=== PATIENT | male | born 1980 | race Caucasian/White ===

== ENCOUNTER 2018-11-20 20:45 | Emergency (ER) | payer SELFPAY ==
[2018-11-20] MEDS ORDERED: ALBUTEROL SO4 2.5/IPRATROPIUM 0.5 INH SOL 3 ML VIAL.NEB. NEB ONE ×2 (20:54→21:58)
--- NOTE | 2018-11-20 20:54 | PDOC ---
Rapid Medical Evaluation Chief Complaint: Respiratory Time Seen by Provider: 11/20/18 20:52 Medical Evaluation: 11/20/18 20:52 I have performed a brief in-person evaluation of this patient. The patient presents with a chief complaint of: fevers and chills x 5 days = coughing with pleuritic pain , + smoking- green phlegm Pertinent physical exam findings: coarse insp grunts wheezing I have ordered the following: CXR/ DUoNeb The patient will proceed to the ED for further evaluation. 11/20/18 20:53 Discharge Disposition - Diagnosis Cough - Referrals - Patient Instructions - Post Discharge Activity
[2018-11-20 20:55] VITALS: TEMP 98.8; BMI 22.0
--- NOTE | 2018-11-20 21:58 | PDOC ---
History of Present Illness <Eliu Rothman - Last Filed: 11/20/18 23:13> - General History Source: Patient Exam Limitations: No Limitations - History of Present Illness Initial Comments: Jojo Avery is a 38 yo M w a pmh of childhood asthma who presents to the ER with 7 days of left sided chest pain described as sharp in quality, rated 7/10, worsens when he coughs or takes a deep breath, and radiates to his back when he coughs. The patient states he has been waking up every day for the past week with a fever and has been sweating every morning when he wakes up. He also endorses multiple episodes of the chills. He states he has been coughing relentlessly and the cough is productive of greenish sputum. Patient states that today his mom gave him "a william pill for the fever." When specified the patient states it was azithromycin and he took 5oo mg of it. The chest pain is not associated with vomiting, worsening with physical exertion or radiation to the arm. Patient denies recent travel, surgeries, immobility, hormone usage, personal or family hx of thrombosis, calf pain, swelling, or erythema. PCP: None PSH: None reported Social Hx: Smokes 1 PPD for 20 years, smokes 1 blunt of marijuana daily, denies alcohol or illicit drug usage. Allergies: NKA, NKDA <Blaine Barnard - Last Filed: 11/21/18 19:03> - General Chief Complaint: Cold Symptoms Stated Complaint: FEVER Time Seen by Provider: 11/20/18 20:52 Past History <Eliu Rothman - Last Filed: 11/20/18 23:13> - Past Medical History COPD: No - Suicide/Smoking/Psychosocial Hx Smoking History: Current every day smoker Have you smoked in the past 12 months: Yes Number of Cigarettes Smoked Daily: 10 Information on smoking cessation initiated: No Hx Alcohol Use: No Drug/Substance Use Hx: Yes <Blaine Barnard - Last Filed: 11/21/18 19:03> - Past Medical History Allergies/Adverse Reactions: Allergies Allergy/AdvReac Type Severity Reaction Status Date / Time No Known Allergies Allergy Verified 11/20/18 20:55 Home Medications: Ambulatory Orders Albuterol 2.5/Ipratropium 0.5 [Duoneb -] 1 neb NEB Q4H #1 vial 11/20/18 Albuterol Sulfate Inhaler - [Ventolin Hfa Inhaler -] 1 - 2 inh PO Q4H #1 inhaler 11/20/18 Azithromycin [Zithromax Tri-[place] (3 DAYS) -] 500 mg PO DAILY #3 tablet 11/20/18 Prednisone [Deltasone] See Taper PO DAILY #10 tablet MDD 2 tab 11/20/18 Review of Systems - Review of Systems Able to Perform ROS?: Yes Comments:: CONSTITUTIONAL: Present: Fever, chills, diaphoresis Absent: generalized weakness, malaise, loss of appetite HEENT: Absent: rhinorrhea, nasal congestion, throat pain, throat swelling, difficulty swallowing, mouth swelling, ear pain, eye pain, visual Changes CARDIOVASCULAR: Present: Chest pain Absent: syncope, palpitations, irregular heart rate, lightheadedness, peripheral edema RESPIRATORY: Present: Cough, SOB, wheezing Absent: dyspnea with exertion, orthopnea, stridor, hemoptysis GASTROINTESTINAL: Absent: abdominal pain, abdominal distension, nausea, vomiting, diarrhea, constipation, melena, hematochezia GENITOURINARY: Absent: dysuria, frequency, urgency, hesitancy, hematuria, flank pain, genital pain MUSCULOSKELETAL: Present: Myalgia Absent: arthralgia, joint swelling SKIN: Absent: rash, itching, pallor HEMATOLOGIC/IMMUNOLOGIC: Absent: easy bleeding, easy bruising, lymphadenopathy, frequent infections ENDOCRINE: Absent: unexplained weight gain, unexplained weight loss, heat intolerance, cold intolerance NEUROLOGIC: Absent: headache, focal weakness or paresthesias, dizziness, unsteady gait, seizure, mental status changes, bladder or bowel incontinence PSYCHIATRIC: Present: Anxiety Absent: depression, suicidal or homicidal ideation, hallucinations. <Blaine Barnard - Last Filed: 11/21/18 19:03> *Physical Exam - Vital Signs Last Vital Signs Temp Pulse Resp BP Pulse Ox 98.8 F 102 H 22 H 125/83 96 11/20/18 20:53 11/20/18 20:53 11/20/18 20:53 11/20/18 20:53 11/20/18 20:53 <Eliu Rothman - Last Filed: 11/20/18 23:13> - Vital Signs Last Vital Signs Temp Pulse Resp BP Pulse Ox 98.8 F 102 H 22 H 125/83 96 11/20/18 20:53 11/20/18 20:53 11/20/18 20:53 11/20/18 20:53 11/20/18 20:53 - Physical Exam Comments: GENERAL: Well developed, well nourished. Awake and alert. Mild acute distress. HEENT: Normocephalic, atraumatic. PERRLA, EOMI. No conjunctival pallor. Sclera are non- icteric. Moist mucous membranes. Oropharynx is clear. NECK: Supple. Full ROM. No JVD. CARDIOVASCULAR: Tachycardic rate, regular rhythm. No murmurs, rubs, or gallops. Distal pulses are 2+ and symmetric. PULMONARY: There is focal left sided wheezes and crackles in the middle and lower lobes. Mild evidence of respiratory distress. ABDOMINAL: Soft. Non-tender. Non-distended. No rebound or guarding. No organomegaly. Normoactive bowel sounds. MUSCULOSKELETAL Normal range of motion at all joints. No bony deformities or tenderness. No CVA tenderness. EXTREMITIES: No cyanosis. No clubbing. No edema. No calf tenderness. SKIN: Warm and dry. Normal capillary refill. No rashes. No jaundice. NEUROLOGICAL: Alert, awake, appropriate. Cranial nerves 2-12 intact. No deficits to light touch in face, upper extremities and lower extremities. No motor deficits in the in face, upper extremities and lower extremities. Normal speech. Gait is normal without ataxia. PSYCHIATRIC: Cooperative. Good eye contact. Appropriate mood and affect. <Blaine Barnard - Last Filed: 11/21/18 19:03> ED Treatment Course - LABORATORY CBC & Chemistry Diagram: 11/20/18 22:22 11/20/18 22:22 - ADDITIONAL ORDERS Additional order review: Laboratory Results 11/20/18 22:22 Sodium 137 Potassium 4.2 Chloride 104 Carbon Dioxide 27 Anion Gap 6 L BUN 14.7 Creatinine 0.8 Est GFR (CKD-EPI)AfAm 130.42 Est GFR (CKD-EPI)NonAf 112.53 Random Glucose 108 H Calcium 8.6 Total Bilirubin 1.0 AST 24 ALT 32 Alkaline Phosphatase 90 Total Protein 7.3 Albumin 3.8 11/20/18 22:22 RBC 4.23 MCV 95.7 MCHC 35.5 RDW 13.1 MPV 7.8 Neutrophils % 74.8 Lymphocytes % 17.2 Monocytes % 7.5 Eosinophils % 0.0 Basophils % 0.5 - Medications Given in the ED: ED Medications Discontinued Medications Generic Name Dose Route Start Last Admin Trade Name Neetu PRN Reason Stop Dose Admin Albuterol/Ipratropium 1 amp 11/20/18 20:54 11/20/18 22:02 Duoneb - NEB 11/20/18 20:55 1 amp ONCE ONE Administration Ibuprofen 800 mg 11/20/18 22:12 11/20/18 22:28 Motrin - PO 11/20/18 22:13 800 mg ONCE ONE Administration Sodium Chloride 1,000 ml 11/20/18 22:12 11/20/18 22:28 Normal Saline - IV 11/20/18 22:13 1,000 ml ONCE ONE Administration <Eliu Rothman - Last Filed: 11/20/18 23:13> - LABORATORY CBC & Chemistry Diagram: 11/20/18 22:22 11/20/18 22:22 - RADIOLOGY Radiograph Interpretation: CXR: Reason for the study. Cough Chest. 2 Views of the chest. Comparison study. None Findings Unremarkable contour of the cardiomediastinal silhouette. Lungs ang appear clear, without evidence of infiltrate, atelectasis. Bullous changes suggested in the lung apices. Pulmonary vasculature is normal. No evidence of pleural effusion, or pneumothorax. No evidence of bulky hilar adenopathy. Visualized bony structures appear intact. IMPRESSION: No evidence of active pulmonary disease. <Blaine Barnard - Last Filed: 11/21/18 19:03> Medical Decision Making - Medical Decision Making Jojo Avery is a 38 yo M w a h of childhood asthma who presents to the ER with 7 days of left sided chest pain described as sharp in quality, rated 7/10, worsens when he coughs or takes a deep breath, and radiates to his back when he coughs. The patient states he has been waking up every day for the past week with a fever and has been sweating every morning when he wakes up. He also endorses multiple episodes of the chills. He states he has been coughing relentlessly and the cough is productive of greenish sputum. Patient states that today his mom gave him "a william pill for the fever." When specified the patient states it was azithromycin and he took 5oo mg of it. Vital Signs Temp Pulse Resp BP Pulse Ox 98.8 F 102 H 22 H 125/83 96 11/20/18 20:53 11/20/18 20:53 11/20/18 20:53 11/20/18 20:53 11/20/18 20:53 DDx IBNLT: PNA, pneumothorax, dehydration, electrolyte/metabolic disturbance, ACS/NH Plan: Labs, CXR, EKG, analgesia, IV hydration, duonebs, re-assess. Labs: Mild baby leukocytosis with left shift. CXR: Possibly increased retrocardiac markings. EKG: NS rate of 87, narrow complex, No ST elevations or depressions, TWI in V2, MI - 128, QTc - 430 Re-assessment: Patient feels much better after analgesia and requests to be discharged. he is very well appearing and has no complaints at the present time. Given the WBC count and the possible retrocardiac markings will send patient home with a Z pack, steroids, and supportive care. Disposition: Home with PCP follow up. <Blaine Barnard - Last Filed: 11/21/18 19:03> *DC/Admit/Observation/Transfer <Eliu Rothman - Last Filed: 11/20/18 23:13> - Discharge Dispostion Decision to Admit order: No <Blaine Barnard - Last Filed: 11/21/18 19:03> Diagnosis at time of Disposition: Cough - Discharge Dispostion Disposition: HOME Condition at time of disposition: Improved - Prescriptions Prescriptions: Albuterol 2.5/Ipratropium 0.5 [Duoneb -] 1 neb NEB Q4H #1 vial Albuterol Sulfate Inhaler - [Ventolin Hfa Inhaler -] 1 - 2 inh PO Q4H #1 inhaler Azithromycin [Zithromax Tri-[place] (3 DAYS) -] 500 mg PO DAILY #3 tablet Prednisone [Deltasone] See Taper PO DAILY #10 tablet MDD 2 tab - Referrals Referrals: [facility] [place] [Provider Group] - Patient Instructions Printed Discharge Instructions: DI for Chronic Obstructive Pulmonary Disease Additional Instructions: Please return to the emergency department with any new or worsening symptoms or concerns. 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 Please take Prednisone daily, and albuterol as needed. Please take Azithromycin daily. Print Language: AMHARIC
--- NOTE | 2018-11-20 22:10 | PDOC ---
Documentation entered by Perlita Parham SCRIBE, acting as scribe for Guero Daniels MD. Guero Daniels MD: This documentation has been prepared by the Dione delgado Brenda, SCRIBE, under my direction and personally reviewed by me in its entirety. I confirm that the documentation accurately reflects all work, treatment, procedures, and medical decision making performed by me. Attending Attestation - Resident Resident Name: Blaine Barnard - ED Attending Attestation I have performed the following: I have examined & evaluated the patient, The case was reviewed & discussed with the resident, I agree w/resident's findings & plan, Exceptions are as noted - HPI HPI: 11/20/18 22:26 The patient is a 38 year old male, with no significant PMH, who presents to the emergency department with 7 days of left sided chest pain with a productive cough of green sputum. The patient reports that his chest pain radiates to his back. He also notes that it is aggravated by breathing in and out, or taking deep breaths, resulting in coughing. He also endorses 5 days of fevers and chills, and episodes of diaphoresis upon waking up. The patient associates his symptoms with his workplace, where he has recently been breathing in a lot of fumes. The patient denies recent travel. Denies headache and dizziness. Denies nausea, vomiting, diarrhea and constipation. Denies dysuria, frequency, urgency and hematuria. Denies any other symptoms. Allergies: NKA Past surgical history: Not reported Social history: Current tobacco use, 10 cigarettes a day. Currently smokes 1 blunt of marijuana daily. Family Hx: No family history of thrombosis PCP: Does not have one. - Physicial Exam PE: 11/21/18 02:29 Agree with exam as documented by resident - Medical Decision Making 11/21/18 02:29 Asthma exacerbation? pna, uri f/u labs, cxr symptomatic tx re-eval dispo per clinical course 11/21/18 02:52 ?retrocardiac consolidation Will treat presumed L sided PNA Rx for Zpack sent to pharmacy of choice
[2018-11-20] MEDS ORDERED: SODIUM CHLORIDE 0.9% 500 ML INFUS.BAG IV ONE (22:12)
[2018-11-20] MEDS ORDERED: IBUPROFEN 400 MG TABLET (FP) PO ONE ×2 (22:12→22:24)
[2018-11-20 22:36] LABS: BASO % 0.5 % (0-2.0); HEMATOCRIT 40.5 % (35.4-49); HEMOGLOBIN 14.4 GM/dL (11.7-16.9); LYMPH % 17.2 % (8-40); MCH 33.9 pg (25.7-33.7); MCHC 35.5 g/dl (32.0-35.9); MEAN CELL VOLUME 95.7 fl (80-96); MEAN PLT VOLUME 7.8 fl (7.5-11.1); MONO % 7.5 % (3.8-10.2); NEUT % 74.8 % (42.8-82.8); PLATELET COUNT 239 K/MM3 (134-434); RBC 4.23 M/mm3 (4.00-5.60); RDW 13.1 % (11.9-15.9); WHITE BLOOD COUNT 10.8 K/mm3 (4.0-10.0)
[2018-11-20] MEDS ORDERED: AZITHROMYCIN IVPB 500 MG in DEXTROSE 5%-WATER - 250 ML IVPB ONE (22:41)
[2018-11-20 23:00] LABS: ALBUMIN 3.8 g/dl (3.4-5.0); BLOOD UREA NITROGEN 14.7 mg/dL (7-18); CALCIUM 8.6 mg/dL (8.5-10.1); CREATININE 0.8 mg/dL (0.55-1.3); TOT PROT 7.3 g/dl (6.4-8.2)
[2018-11-20 23:05] LABS: POTASSIUM 4.2 mmol/L (3.5-5.1)
[2018-11-20] MEDS ORDERED: AZITHROMYCIN IVPB 500 MG/250 ML BAG IVPB ONE (23:29)
[2018-11-21 02:03] VITALS: BP 100/64; PULSE 74
--- NOTE | 2018-11-21 12:49 | EKG ---
Test Reason : Blood Pressure : / mmHG Vent. Rate : 087 BPM Atrial Rate : 087 BPM P-R Int : 128 ms QRS Dur : 090 ms QT Int : 358 ms P-R-T Axes : 080 069 057 degrees QTc Int : 430 ms NORMAL SINUS RHYTHM INCOMPLETE RBBB NO PREVIOUS ECGS AVAILABLE Confirmed by MAGNUS GUERRERO MD ([id number]) on 11/21/2018 12:49:26 PM Referred By: Confirmed By:MAGNUS GUERRERO MD
== END 2018-11-21 02:43 | disposition home or self-care (01) ==
LOC: JER 20:45
PROC: 3E0F7GC Introduction of Other Therapeutic Substance into Respiratory Tract, Via Natural or Artificial Opening (ICD-10-PCS; principal; 2018-11-20)
PROC: 3E03329 Introduction of Other Anti-infective into Peripheral Vein, Percutaneous Approach (ICD-10-PCS; 2018-11-20)
PROC: 3E0337Z Introduction of Electrolytic and Water Balance Substance into Peripheral Vein, Percutaneous Approach (ICD-10-PCS; 2018-11-20)
DX: J18.9 Pneumonia, unspecified organism (principal)
CPT/HCPCS: 36415; 71046-TC-FY; 80053; 84484; 85025; 93005; 93010; 99283-25